=== PATIENT | male | born 1950 | race Two or more races ===

== ENCOUNTER 2021-01-29 12:45 | Emergency (ER) | payer OTHER ==
[~2021-01-29] VITALS: Ht 170.2 cm; Wt 72.6 kg
[2021-01-29] MEDS ORDERED: FORTAMET500 MG (12:57)
[2021-01-29] MEDS ORDERED: HORIZANT300 MG (12:58)
[2021-01-29] MEDS ORDERED: COZAAR100 MG (12:58)
[2021-01-29] MEDS ORDERED: TOPROL XL50 M1 (12:59)
[2021-01-29] MEDS ORDERED: LIPITOR40 M1 (12:59)
[2021-01-29] MEDS ORDERED: LASIX20 MG (12:59)
[2021-01-29] MEDS ORDERED: ADULT LOW DOSE81 M1 (13:00)
[2021-01-29] MEDS ORDERED: DECADRON0.5 MG (13:00)
[2021-01-29] MEDS ORDERED: BACTRIM DS TAB1 EACH PO (18:40)
== END 2021-01-29 18:51 | disposition home or self-care (01) ==
LOC: ER 12:45
DX: N39.0 Urinary tract infection, site not specified (principal); B96.29 Other Escherichia coli [E. coli] as the cause of diseases classified elsewhere; R31.29 Other microscopic hematuria; R10.32 Left lower quadrant pain

== ENCOUNTER 2021-01-30 10:38 | Emergency (ER) | payer OTHER ==
[~2021-01-30] VITALS: Ht 170.2 cm; Wt 71.7 kg
[~2021-01-30 10:38] MED LIST: ADULT LOW DOSE81 M1; BACTRIM DS TAB1 EACH PO; COZAAR100 MG; DECADRON0.5 MG; FORTAMET500 MG; HORIZANT300 MG; LASIX20 MG; LIPITOR40 M1; TOPROL XL50 M1
== END 2021-01-30 12:28 | disposition home or self-care (01) ==
LOC: ER 10:38
DX: N39.0 Urinary tract infection, site not specified (principal)